=== PATIENT | male | born 1970 | race Two or more races ===

== ENCOUNTER 2017-10-03 12:22 | Outpatient (CLI) | payer OTHER ==
[~2017-10-03 12:22] MED LIST: ACETAMINOPHEN-1 EAC2 PO; CELEBREX50 MG PO; COLACE100 MG PO; DOCUSATE SODIU100 MG PO; FLEXERIL PO; KETO10TA2 PO; RESTORIL30 M1 PO; RESTORIL30 MG PO
== END 2017-10-03 13:00 | disposition home or self-care (01) ==
LOC: NUCLEAR 12:22
DX: G89.29 Other chronic pain (principal); M54.5 Low back pain; M51.36 Other intervertebral disc degeneration, lumbar region

== ENCOUNTER 2018-01-16 11:05 | Outpatient (CLI) | payer OTHER | END 2018-01-16 11:11 | disposition home or self-care (01) | LOC: RAD 11:05 | DX: M51.27 Other intervertebral disc displacement, lumbosacral region (principal); M51.37 Other intervertebral disc degeneration, lumbosacral region ==